=== PATIENT | male | born 1960 | race Caucasian/White ===

== ENCOUNTER → 2017-02-13 | Day surgery (SDC) | payer MEDICARE ==
[~2017-02-13] VITALS: Ht 188 cm; Wt 112.7 kg
[~2017-02-13] MED LIST: BUPIVACAINE/EPINEPHRINE 0.5% PF 30 ML VIAL ONE; CHLORHEXIDINE GLUCONATE 2 % 1 PACK (2 CLOTHS) TOPICAL PRN; DO NOT ADM ANY ANTICOAGULANT DRUGS PRN; INSULIN HUMAN REGULAR 1,000 UNITS/10 ML VIAL SQ PRN; LACTATED RINGER'S 1000 ML IV PRN; LACTCAP8 PO; LIDOCAINE 0.5%/EPINEPHrine 1:200,000 SOLN 50 ML VIAL ONE; LIDOCAINE 1%/EPINEPHrine 1:100,000 SOLN 50 ML VIAL ONE; LINA290C PO; METOPROLOL TARTRATE 25 MG TAB PO PRN; MORPHINE SULFATE 4 MG/ML INJ ONE; OXYC15TA PO; OXYC60TA8 PO; PANT40TA3 PO; POVIDONE IODINE 5% (ANTISEPSIS KIT) 4 APPLICATIONS EACH NARE PRN; PROPOFOL 200 MG/20 ML AMP IV ONE; SODIUM CHLORID 0.9% 500 ML IV PRN; TRAZ300T2 PO; fentaNYL CITRATE 250 MCG/5 ML AMP ONE; oxyCODONE/ACETAMINOPHEN 10 MG/325 MG TAB ONE; oxyCODONE/ACETAMINOPHEN 10 MG/325 MG TAB PO ONE
[2017-02-13 13:00] VITALS: BP 152/79; PULSE 62; RESP 18; TEMP 98.8; O2SAT 96
[2017-02-13 13:49] LABS: AUTOMATED NEUTROPHIL # 6.4 TH/MM3 (1.8-7.7); BASOPHIL # 0.1 TH/MM3 (0-0.2); EOSINOPHIL # 0.1 TH/MM3 (0-0.4); EOSINOPHIL % 1.2 % (0.0-4.0); HEMATOCRIT 41.7 % (39.0-51.0); HEMO FLAGS DIFF FINAL; LYMPH % 24.3 % (9.0-44.0); LYMPHOCYTE # 2.5 TH/MM3 (1.0-4.8); MEAN CELL VOLUME 83.3 FL (80.0-100.0); MEAN CORPUSCULAR HEMOGLOBIN 28.2 PG (27.0-34.0); MEAN CORPUSCULAR HGB CONC 33.9 % (32.0-36.0); MONO % 11.4 % (0.0-8.0); NEUT % 62.1 % (16.0-70.0); PLATELET COUNT 285 TH/MM3 (150-450); RED BLOOD COUNT 5.01 MIL/MM3 (4.50-5.90); RED CELL DISTRIBUTION WIDTH 13.9 % (11.6-17.2); WHITE BLOOD COUNT 10.3 TH/MM3 (4.0-11.0)
[2017-02-13 15:33] VITALS: BP 187/90; PULSE 65; RESP 18; O2SAT 98
--- NOTE | 2017-02-13 21:30 | MP ---
cc: ROLF REAGAN MD, JOHN T. M.D. DATE OF SURGERY 02/13/17 PREOPERATIVE DIAGNOSIS Posterior [id number]. POSTOPERATIVE DIAGNOSIS Posterior [id number]. PROCEDURE Partial closed left lateral internal sphincterotomy. ANESTHESIA Monitored anesthesia care with local 0.5% Xylocaine with epinephrine. SURGEON Dr. Bethea ESTIMATED BLOOD LOSS Minimal. OPERATIVE FINDINGS This patient had a deep posterior [id number] with a lot of anal pain. Conservative therapy did not work and for this reason a sphincterotomy was recommended. At surgery partial closed left lateral internal sphincterotomy was done. OPERATIVE TECHNIQUE The patient was placed on the table in the left lateral position, given intravenous monitored anesthesia care and the anal canal was prepped and draped in the usual manner, was then injected with 0.5% Xylocaine with epinephrine and the Vanegas bivalve retractor was inserted into the anal canal and it was seen to have multiple external/internal hemorrhoids along with a deep posterior [id number]. My attention was turned to the left lateral position of the anal canal and the Vanegas bivalve retractor was opened and the intersphincteric groove was palpated, #11 scalpel blade was used in the intersphincteric groove and the internal sphincter muscle was incised for a distance of approximately 1 cm. After this was done the remainder of the fibers were broken with digital palpation and a dressing was applied. Sponge, needle and instrument counts were reported as correct. The estimated blood loss was minimal. The patient tolerated the procedure well and left the operating room in good condition. MD ASYA Cloud/HARPREET /2:33 PM /9:10 PM
--- NOTE | 2017-02-14 10:27 | EKG ---
Date Performed: 02/13/2017 Time Performed: 13:26:52 PTAGE: 56 years EKG: SINUS BRADYCARDIA WITH OCCASIONAL SUPRAVENTRICULAR PREMATURE COMPLEXES MODERATE INTRAVENTRI CULAR CONDUCTION DELAY BORDERLINE ECG NO PREVIOUS TRACING DOCTOR: Michaelle Shaffer Interpretating Date/Time 02/14/2017 10:26:38
== END | disposition home or self-care (01) ==
LOC: HSDC 12:46
PROVIDERS: ATTEND Colon & Rectal Surgery
DX: K60.2 Anal fissure, unspecified (principal); K64.8 Other hemorrhoids; K64.4 Residual hemorrhoidal skin tags; Z01.810 Encounter for preprocedural cardiovascular examination; Z01.818 Encounter for other preprocedural examination
CPT/HCPCS: 46080; 85025; 93005; J2270; J3010; J7120